=== PATIENT | male | born 1955 | race Two or more races ===

== ENCOUNTER 2022-01-12 14:55 | Inpatient (IN) | payer MEDICARE, MEDICAID ==
[~2022-01-12] VITALS: Ht 170.2 cm; Wt 97.4 kg
[2022-01-12] MEDS ORDERED: CLINDAMYCIN 600MG IV 50 ML IV ONE (15:30)
[2022-01-12 16:36] LABS: Basophils # (auto) 0.1 10 ^3/uL (0-0.2); Basophils % (auto) 0.5 % (0.0-2.0); Eosinophils # (auto) 0.3 10 ^3/uL (0-0.8); Hemoglobin 13.5 g/dL (13.5-17.5); Lymphocytes # (auto) 1.4 10 ^3/uL (0.4-5.4); Lymphocytes % (auto) 14.7 % (10.0-50.0); Mean Corpuscular Hemoglobin 30.2 pg (28.0-32.0); Mean Corpuscular Hgb Conc. 32.9 g/dL (32.0-36.0); Mean Corpuscular Volume 91.7 fL (80.0-100.0); Monocytes # (auto) 1.2 10 ^3/uL (0-1.3); Monocytes % (auto) 12.4 % (0.0-12.0); Neutrophils # (auto) 6.7 10 ^3/uL (1.6-8.6); Neutrophils % (auto) 69.4 % (37.0-80.0); Nucleated Red Blood Cells % 0.1 %; Red Blood Cells 4.47 10^6/uL (4.5-5.90); Red Cell Distribution Width 13.7 % (11.8-14.3); White Blood Cell 9.7 10^3/uL (4.4-10.8)
[2022-01-12 16:50] LABS: Calcium 8.9 mg/dL (8.5-10.1)
[2022-01-12 16:58] LABS: INR 1.05 (0.9-1.15); Partial Thromboplastin Time 28.8 sec (23.6-33.0)
[2022-01-12 17:01] LABS: Albumin 3.2 g/dL (3.4-5.0); BUN/Creatinine Ratio 15.8; Bilirubin, Total 0.9 mg/dL (0.2-1.0); CRP High Sensitivity 17.5 mg/dL (< 0.3); Total Protein 7.8 g/dL (6.4-8.2)
[2022-01-12] MEDS ORDERED: MORPHINE SULFATE INJ 2 MG/ml SYRG IV PRN (21:00)
[2022-01-12] MEDS ORDERED: DEXTROSE (50%) 50ML SYRG IV PRN (21:00)
[2022-01-12] MEDS ORDERED: ONDANSETRON HCL 4 MG/2 ML VIAL IV PRN (21:00)
[2022-01-12] MEDS ORDERED: cefTRIAXone 1GM/50ML D5W 50 ML IV ONE (21:00)
[2022-01-12] MEDS: SODIUM CHLORIDE 0.9% 1,000 ML IV SCH (21:53)
[2022-01-12] MEDS: CLINDAMYCIN 600MG IV 50 ML IV SCH (22:39)
[2022-01-12] MEDS ORDERED: SEMA2INJ SC (23:56)
[2022-01-13] MEDS: ACCU-CHEK COMFORT CURVE STRIP VI SCH ×4 (00:42→18:53)
[2022-01-13] MEDS: InsuLIN REG 1unit/0.01ml Soln (100units/ml) SC SCH ×4 (00:43→18:54)
[2022-01-13 04:59] VITALS: BP 151/72
[2022-01-13] MEDS: CLINDAMYCIN 600MG IV 50 ML IV SCH ×3 (05:36→22:06)
[2022-01-13 06:28] LABS: Urine Bacteria NONE SEEN /hpf (None Seen); Urine Blood Negative /uL (Negative); Urine WBC 1 /hpf (0 - 3)
[2022-01-13 06:39] LABS: Basophils # (auto) 0.1 10 ^3/uL (0-0.2); Basophils % (auto) 0.9 % (0.0-2.0); Eosinophils # (auto) 0.4 10 ^3/uL (0-0.8); Eosinophils % (auto) 5.4 % (0.0-7.0); Hemoglobin 12.8 g/dL (13.5-17.5); Lymphocytes # (auto) 1.1 10 ^3/uL (0.4-5.4); Lymphocytes % (auto) 13.4 % (10.0-50.0); Mean Corpuscular Hemoglobin 31.7 pg (28.0-32.0); Mean Corpuscular Hgb Conc. 34.5 g/dL (32.0-36.0); Mean Corpuscular Volume 91.7 fL (80.0-100.0); Monocytes # (auto) 0.9 10 ^3/uL (0-1.3); Neutrophils # (auto) 5.4 10 ^3/uL (1.6-8.6); Neutrophils % (auto) 68.3 % (37.0-80.0); Nucleated Red Blood Cells % 0.1 %; Red Blood Cells 4.03 10^6/uL (4.5-5.90); Red Cell Distribution Width 13.8 % (11.8-14.3); White Blood Cell 7.9 10^3/uL (4.4-10.8)
[2022-01-13 06:46] LABS: Calcium 8.6 mg/dL (8.5-10.1); Potassium 4.3 mmol/L (3.5-5.1)
[2022-01-13 06:51] LABS: Albumin 2.7 g/dL (3.4-5.0); BUN/Creatinine Ratio 14.3; Bilirubin, Total 0.7 mg/dL (0.2-1.0); Total Protein 7.1 g/dL (6.4-8.2)
[2022-01-13 08:11] LABS: Cholesterol 91 mg/dL (< 200); HDL Cholesterol 36 mg/dL (40-59); LDL Cholesterol 46 mg/dL (< 100); Triglycerides 119 mg/dL (< 150)
[2022-01-13 09:00] VITALS: BP 130/79
[2022-01-13] MEDS ORDERED: ERGOCALCIFEROL 50,000 UNIT(1.25MG) CAP PO SCH (10:15)
[2022-01-13] MEDS: SODIUM CHLORIDE 0.9% 1,000 ML IV SCH (10:20)
[2022-01-13] MEDS: LISINOPRIL 5 MG TAB PO SCH (10:58)
[2022-01-13] MEDS: cefTRIAXone 1GM/50ML D5W 50 ML IV SCH (11:07)
[2022-01-13 13:00] VITALS: BP 141/66
[2022-01-13 17:00] VITALS: BP 130/58
[2022-01-13 22:00] VITALS: BP 151/81
[2022-01-13] MEDS: DAKINS QUARTER STR 0.125% (NaHypochlorite) 473 ML TOPICAL SOL TOP SCH (22:07)
[2022-01-14] MEDS: SODIUM CHLORIDE 0.9% 1,000 ML IV SCH ×2 (00:05→12:15)
[2022-01-14] MEDS: ACCU-CHEK COMFORT CURVE STRIP VI SCH ×4 (00:12→16:52)
[2022-01-14] MEDS: InsuLIN REG 1unit/0.01ml Soln (100units/ml) SC SCH ×4 (00:34→16:55)
[2022-01-14 05:00] VITALS: BP 153/85
[2022-01-14] MEDS: CLINDAMYCIN 600MG IV 50 ML IV SCH ×3 (06:08→21:03)
[2022-01-14 06:28] LABS: Basophils # (auto) 0.1 10 ^3/uL (0-0.2); Basophils % (auto) 0.9 % (0.0-2.0); Eosinophils # (auto) 0.4 10 ^3/uL (0-0.8); Eosinophils % (auto) 5.5 % (0.0-7.0); Hematocrit 37.9 % (41.0-53.0); Hemoglobin 12.7 g/dL (13.5-17.5); Lymphocytes # (auto) 1.3 10 ^3/uL (0.4-5.4); Mean Corpuscular Hemoglobin 30.8 pg (28.0-32.0); Mean Corpuscular Hgb Conc. 33.5 g/dL (32.0-36.0); Mean Corpuscular Volume 91.9 fL (80.0-100.0); Monocytes # (auto) 1.2 10 ^3/uL (0-1.3); Neutrophils # (auto) 3.8 10 ^3/uL (1.6-8.6); Red Blood Cells 4.12 10^6/uL (4.5-5.90); Red Cell Distribution Width 13.9 % (11.8-14.3); White Blood Cell 6.8 10^3/uL (4.4-10.8)
[2022-01-14 06:42] LABS: Lymphocytes % (auto) 20.6 % (10.0-50.0)
[2022-01-14 06:51] LABS: Potassium 3.9 mmol/L (3.5-5.1)
[2022-01-14 06:58] LABS: Albumin 2.6 g/dL (3.4-5.0); BUN/Creatinine Ratio 13.4; Bilirubin, Total 0.5 mg/dL (0.2-1.0); Calcium 8.4 mg/dL (8.5-10.1)
[2022-01-14 09:00] VITALS: BP 140/79
[2022-01-14] MEDS: LISINOPRIL 5 MG TAB PO SCH (09:06)
[2022-01-14] MEDS: cefTRIAXone 1GM/50ML D5W 50 ML IV SCH (09:06)
[2022-01-14] MEDS: DAKINS QUARTER STR 0.125% (NaHypochlorite) 473 ML TOPICAL SOL TOP SCH ×2 (09:13→21:03)
[2022-01-14 13:00] VITALS: BP 153/77
[2022-01-14 16:59] VITALS: BP 137/55
[2022-01-14 22:00] VITALS: BP 158/68
[2022-01-15] MEDS: InsuLIN REG 1unit/0.01ml Soln (100units/ml) SC SCH ×4 (00:26→18:38)
[2022-01-15] MEDS: ACCU-CHEK COMFORT CURVE STRIP VI SCH ×4 (00:27→18:27)
[2022-01-15] MEDS: SODIUM CHLORIDE 0.9% 1,000 ML IV SCH (02:38)
[2022-01-15 05:00] VITALS: BP 143/75
[2022-01-15] MEDS: CLINDAMYCIN 600MG IV 50 ML IV SCH ×2 (05:54→07:41)
[2022-01-15] MEDS ORDERED: ONDANSETRON HCL 4 MG/2 ML VIAL ONE (06:56)
[2022-01-15] MEDS ORDERED: fentaNYL CITRATE 100 MCG/2 ML VL ONE (06:56)
[2022-01-15] MEDS ORDERED: PROPOFOL 10 MG/ML 20 ML IV ONE (06:56)
[2022-01-15] MEDS ORDERED: SODIUM CHLORIDE LOCK 10 ML ONE (06:56)
[2022-01-15] MEDS ORDERED: KETAMINE HCL 10 ML ONE (06:56)
[2022-01-15] MEDS ORDERED: MIDAZOLAM HCL 2MG/2ML 2ml VIAL (1mg/ml) ONE (06:56)
[2022-01-15] MEDS ORDERED: SUCCINYLCHOLINE CHLORIDE 20 MG/ML 10ML VIAL IV ONE (06:59)
[2022-01-15] MEDS ORDERED: LIDOCAINE 1%HCL (LOCAL ANESTH) 10 ML MDV ONE (07:09)
[2022-01-15] MEDS ORDERED: BUPIVACAINE HCL 50 ML ONE (07:09)
[2022-01-15] MEDS ORDERED: HYDROmorphone HCL 2 MG/ML VL/or syr IV PRN ×2 (07:30)
[2022-01-15] MEDS ORDERED: ACCU-CHEK COMFORT CURVE STRIP VI ONE (07:30)
[2022-01-15] MEDS ORDERED: MORPHINE SULFATE 4 MG/ML SYR/VIAL IV PRN (07:30)
[2022-01-15] MEDS ORDERED: METOCLOPRAMIDE HCL 5MG/ml INJ 2ml VIAL IV PRN (07:30)
[2022-01-15 08:00] VITALS: BP 129/41
[2022-01-15 09:00] VITALS: BP 153/60
[2022-01-15] MEDS: DAKINS QUARTER STR 0.125% (NaHypochlorite) 473 ML TOPICAL SOL TOP SCH ×2 (10:00→21:24)
[2022-01-15] MEDS: LISINOPRIL 5 MG TAB PO SCH (10:17)
[2022-01-15] MEDS: cefTRIAXone 1GM/50ML D5W 50 ML IV SCH (10:28)
[2022-01-15] MEDS ORDERED: VANCOMYCIN PER PHARMACY 0 MG IV SCH (11:00)
[2022-01-15] MEDS ORDERED: VANCOMYCIN 1GM/250ML 250 ML IV ONE (11:45)
[2022-01-15 13:00] VITALS: BP 129/41
[2022-01-15 17:34] VITALS: BP 127/73
[2022-01-15] MEDS: VANCOMYCIN 1GM/250ML 250 ML IV SCH (21:26)
[2022-01-15 22:00] VITALS: BP 123/69
[2022-01-16] MEDS: InsuLIN REG 1unit/0.01ml Soln (100units/ml) SC SCH ×5 (00:44→23:35)
[2022-01-16 05:24] VITALS: BP 131/62
[2022-01-16 06:16] LABS: Basophils # (auto) 0.1 10 ^3/uL (0-0.2); Basophils % (auto) 0.9 % (0.0-2.0); Eosinophils # (auto) 0.4 10 ^3/uL (0-0.8); Eosinophils % (auto) 5.8 % (0.0-7.0); Hematocrit 37.1 % (41.0-53.0); Hemoglobin 12.6 g/dL (13.5-17.5); Lymphocytes # (auto) 1.2 10 ^3/uL (0.4-5.4); Lymphocytes % (auto) 17.3 % (10.0-50.0); Mean Corpuscular Hgb Conc. 33.9 g/dL (32.0-36.0); Mean Corpuscular Volume 91.6 fL (80.0-100.0); Monocytes # (auto) 1.1 10 ^3/uL (0-1.3); Monocytes % (auto) 15.5 % (0.0-12.0); Neutrophils # (auto) 4.3 10 ^3/uL (1.6-8.6); Neutrophils % (auto) 60.5 % (37.0-80.0); Red Blood Cells 4.05 10^6/uL (4.5-5.90); Red Cell Distribution Width 13.9 % (11.8-14.3)
[2022-01-16 06:25] LABS: Albumin 2.5 g/dL (3.4-5.0); Calcium 8.7 mg/dL (8.5-10.1); Potassium 4.1 mmol/L (3.5-5.1)
[2022-01-16] MEDS: ACCU-CHEK COMFORT CURVE STRIP VI SCH ×5 (06:28→23:33)
[2022-01-16 07:32] LABS: BUN/Creatinine Ratio 14.6; Bilirubin, Total 0.4 mg/dL (0.2-1.0); CRP High Sensitivity 4.6 mg/dL (< 0.3)
[2022-01-16 08:00] VITALS: BP 158/71
[2022-01-16] MEDS: DAKINS QUARTER STR 0.125% (NaHypochlorite) 473 ML TOPICAL SOL TOP SCH ×2 (10:00→21:24)
[2022-01-16] MEDS: VANCOMYCIN 1GM/250ML 250 ML IV SCH ×2 (10:30→19:12)
[2022-01-16] MEDS: LISINOPRIL 5 MG TAB PO SCH (10:30)
[2022-01-16 12:00] VITALS: BP 166/79
[2022-01-16 16:00] VITALS: BP 152/71
[2022-01-16] MEDS ORDERED: FUROSEMIDE 40 MG/4 ML VIAL IV SCH (18:00)
[2022-01-17] MEDS: VANCOMYCIN 1GM/250ML 250 ML IV SCH ×3 (03:45→23:31)
[2022-01-17 05:00] VITALS: BP 152/76
[2022-01-17] MEDS: ACCU-CHEK COMFORT CURVE STRIP VI SCH ×4 (05:41→23:30)
[2022-01-17] MEDS: InsuLIN REG 1unit/0.01ml Soln (100units/ml) SC SCH ×4 (05:43→23:45)
[2022-01-17 07:15] LABS: Potassium 4.1 mmol/L (3.5-5.1)
[2022-01-17 07:24] LABS: Albumin 2.7 g/dL (3.4-5.0); BUN/Creatinine Ratio 16.3; Calcium 8.5 mg/dL (8.5-10.1); Phosphorus 3.3 mg/dL (2.5-4.90)
[2022-01-17 08:00] VITALS: BP 155/76
[2022-01-17] MEDS ORDERED: LISINOPRIL 10 MG TAB PO SCH (10:00)
[2022-01-17] MEDS ORDERED: PANTOPRAZOLE 40 MG TAB PO SCH (10:00)
[2022-01-17] MEDS ORDERED: INSULIN LANTUS (GLARGINE) 1 /0.01ml (100units/ml) SC SCH (10:00)
[2022-01-17] MEDS ORDERED: ENOXAPARIN SOD 80 MG/0.8ML SYRINGE SC SCH (10:00)
[2022-01-17] MEDS: DAKINS QUARTER STR 0.125% (NaHypochlorite) 473 ML TOPICAL SOL TOP SCH ×2 (10:00→22:00)
[2022-01-17] MEDS: ENOXAPARIN SOD 40 MG/0.4 ML SYRINGE SC SCH (11:15)
[2022-01-17 12:00] VITALS: BP 163/82
[2022-01-17] MEDS: INSULIN LANTUS (GLARGINE) 1 /0.01ml (100units/ml) SC SCH (12:55)
[2022-01-17] MEDS: LISINOPRIL 10 MG TAB PO SCH (13:36)
[2022-01-17 16:00] VITALS: BP 157/75
[2022-01-17 22:00] VITALS: BP 158/52
[2022-01-18 05:00] VITALS: BP 141/72
[2022-01-18] MEDS: ACCU-CHEK COMFORT CURVE STRIP VI SCH ×4 (06:28→23:59)
[2022-01-18] MEDS: InsuLIN REG 1unit/0.01ml Soln (100units/ml) SC SCH ×3 (06:30→18:29)
[2022-01-18 06:56] LABS: Basophils # (auto) 0.1 10 ^3/uL (0-0.2); Eosinophils # (auto) 0.3 10 ^3/uL (0-0.8); Eosinophils % (auto) 4.8 % (0.0-7.0); Hematocrit 40.4 % (41.0-53.0); Hemoglobin 13.3 g/dL (13.5-17.5); Lymphocytes # (auto) 1.3 10 ^3/uL (0.4-5.4); Mean Corpuscular Hemoglobin 30.2 pg (28.0-32.0); Mean Corpuscular Hgb Conc. 32.9 g/dL (32.0-36.0); Mean Corpuscular Volume 91.9 fL (80.0-100.0); Monocytes % (auto) 14.7 % (0.0-12.0); Neutrophils # (auto) 4.2 10 ^3/uL (1.6-8.6); Neutrophils % (auto) 60.5 % (37.0-80.0); Nucleated Red Blood Cells % 0.1 %; Red Blood Cells 4.39 10^6/uL (4.5-5.90); Red Cell Distribution Width 13.7 % (11.8-14.3); White Blood Cell 6.9 10^3/uL (4.4-10.8)
[2022-01-18 08:00] VITALS: BP 140/71
[2022-01-18] MEDS ORDERED: VANCOMYCIN 1GM/250ML 250 ML IV SCH (10:15)
[2022-01-18] MEDS: LISINOPRIL 10 MG TAB PO SCH (10:27)
[2022-01-18] MEDS: ENOXAPARIN SOD 40 MG/0.4 ML SYRINGE SC SCH (10:28)
[2022-01-18] MEDS: VANCOMYCIN 1GM/250ML 250 ML IV SCH ×2 (10:28→22:30)
[2022-01-18 12:00] VITALS: BP 162/82
[2022-01-18] MEDS ORDERED: hydrALAZINE HCL 20 MG/ML VL IV PRN (12:45)
[2022-01-18] MEDS: INSULIN LANTUS (GLARGINE) 1 /0.01ml (100units/ml) SC SCH (12:51)
[2022-01-18] MEDS: DAKINS QUARTER STR 0.125% (NaHypochlorite) 473 ML TOPICAL SOL TOP SCH ×2 (12:52→22:30)
[2022-01-18 16:00] VITALS: BP 134/63
[2022-01-18 22:00] VITALS: BP 155/69
[2022-01-19] MEDS: InsuLIN REG 1unit/0.01ml Soln (100units/ml) SC SCH ×3 (00:07→12:46)
[2022-01-19 05:00] VITALS: BP 157/76
[2022-01-19] MEDS: ACCU-CHEK COMFORT CURVE STRIP VI SCH ×2 (06:17→12:45)
[2022-01-19] MEDS: VANCOMYCIN 1GM/250ML 250 ML IV SCH (08:08)
[2022-01-19 08:46] VITALS: BP 153/79
[2022-01-19] MEDS: DAKINS QUARTER STR 0.125% (NaHypochlorite) 473 ML TOPICAL SOL TOP SCH (10:08)
[2022-01-19] MEDS: ENOXAPARIN SOD 40 MG/0.4 ML SYRINGE SC SCH (10:18)
[2022-01-19] MEDS: LISINOPRIL 10 MG TAB PO SCH (10:18)
[2022-01-19 12:02] VITALS: BP 110/71
[2022-01-19] MEDS: INSULIN LANTUS (GLARGINE) 1 /0.01ml (100units/ml) SC SCH (12:47)
[2022-01-19] MEDS ORDERED: ERGO1CAP23 PO (14:07)
[2022-01-19 16:31] VITALS: BP 122/73
== END 2022-01-19 18:19 | disposition home health service (06) | DRG 629 ==
LOC: ER 14:55 → OVERFLOW 20:48 → EAST 23:54
PROVIDERS: ADMIT Nurse Practitioner; ATTEND Internal Medicine
PROC: 05HF33Z Insertion of Infusion Device into Left Cephalic Vein, Percutaneous Approach (ICD-10-PCS; 2022-01-14)
PROC: B54NZZA Ultrasonography of Left Upper Extremity Veins, Guidance (ICD-10-PCS; 2022-01-14)
PROC: 0QBP0ZX Excision of Left Metatarsal, Open Approach, Diagnostic (ICD-10-PCS; 2022-01-15)
PROC: 0QBP0ZX Excision of Left Metatarsal, Open Approach, Diagnostic (ICD-10-PCS; principal; 2022-01-15 07:43)
DX: E11.69 Type 2 diabetes mellitus with other specified complication (principal); E44.0 Moderate protein-calorie malnutrition; L03.116 Cellulitis of left lower limb; M86.8X7 Other osteomyelitis, ankle and foot; L02.612 Cutaneous abscess of left foot; M00.9 Pyogenic arthritis, unspecified; L97.529 Non-pressure chronic ulcer of other part of left foot with unspecified severity; I10 Essential (primary) hypertension; E66.9 Obesity, unspecified; E55.9 Vitamin D deficiency, unspecified; M19.079 Primary osteoarthritis, unspecified ankle and foot; E66.01 Morbid (severe) obesity due to excess calories; Z20.822 Contact with and (suspected) exposure to COVID-19; Z68.33 Body mass index [BMI] 33.0-33.9, adult; Z83.3 Family history of diabetes mellitus; Z79.84 Long term (current) use of oral hypoglycemic drugs
CPT/HCPCS: 36415; 71045; 73630; 73700; 73718; 80053; 80061; 80069; 80202; 81001; 82306; 82565; 82962; 83036; 84443; 85025; 85610; 85652; 85730; 86141; 87040; 87070; 87075; 87077; 87186; 87205; 93005; 93925; 96365; 96367; 97116; 97163; 97530; G0378; J0330; J0696; J1815; J2001; J2250; J2405; J2704; J3490

== ENCOUNTER 2023-07-21 14:50 | Inpatient (IN) | payer MEDICARE, MEDICAID ==
[~2023-07-21] VITALS: Ht 167.6 cm; Wt 95.0 kg
[~2023-07-21 14:50] MED LIST: ERGO1CAP23 PO; SEMA2INJ SC
[2023-07-21] MEDS ORDERED: cloNIDine HCL 0.1 MG TAB PO ONE (15:15)
[2023-07-21 15:20] VITALS: PULSE 80; RESP 16; O2SAT 98
[2023-07-21 16:03] LABS: Alanine Aminotransferase 35 U/L (7-40); Albumin 4.8 g/dL (3.2-4.8); Alkaline Phosphatase 58 U/L (46-116); Anion Gap 5 (5-15); Aspartate Aminotransferase 21 U/L (13-40); BUN/Creatinine Ratio 13.4 (10.0-20.0); Blood Urea Nitrogen 11 mg/dL (9-23); Calcium 9.8 mg/dL (8.5-10.1); Carbon Dioxide 30 mmol/L (20-30); Chloride 100 mmol/L (98-107); Glucose 153 mg/dL (74-106); Sodium 135 mmol/L (136-145)
[2023-07-21 16:04] LABS: Total Protein 7.7 g/dL (5.7-8.2)
[2023-07-21 16:08] LABS: Basophils # (auto) 0 10 ^3/uL (0-0.2)
[2023-07-21 16:29] LABS: Basophils % (auto) 0.7 % (0.0-2.0); Eosinophils # (auto) 0.1 10 ^3/uL (0-0.8); Hematocrit 44.4 % (41.0-53.0); Hemoglobin 15.2 g/dL (13.5-17.5); Lymphocytes # (auto) 1.7 10 ^3/uL (0.4-5.4); Lymphocytes % (auto) 23.8 % (10.0-50.0); Mean Corpuscular Hemoglobin 31.8 pg (28.0-32.0); Mean Corpuscular Hgb Conc. 34.2 g/dL (32.0-36.0); Monocytes # (auto) 0.7 10 ^3/uL (0-1.3); Monocytes % (auto) 10.1 % (0.0-12.0); Neutrophils # (auto) 4.4 10 ^3/uL (1.6-8.6); Neutrophils % (auto) 63.4 % (37.0-80.0); Red Blood Cells 4.78 10^6/uL (4.5-5.90); White Blood Cell 6.9 10^3/uL (4.4-10.8)
[2023-07-21] MEDS ORDERED: ACETAMINOPHEN 325 MG TAB PO PRN (17:00)
[2023-07-21] MEDS ORDERED: DEXTROSE (50%) 50ML SYRG IV PRN (17:00)
[2023-07-21] MEDS ORDERED: NITROGLYCERIN 0.4 MG SL TAB SL PRN (17:00)
[2023-07-21] MEDS ORDERED: MORPHINE SULFATE INJ 2 MG/ml SYRG IV PRN (17:00)
[2023-07-21 17:05] LABS: Urine Bacteria NONE SEEN /hpf (None Seen); Urine Blood Negative /uL (Negative); Urine Clarity Clear (Clear); Urine Color Colorless (Yellow); Urine Protein, UAD Negative (Negative); Urine Specific Gravity 1.011 (1.001-1.035); Urine Urobilinogen Normal (Negative); Urine WBC <1 /hpf (0 - 3); Urine pH 7.5 (5.0-8.0)
[2023-07-21] MEDS ORDERED: ERGOCALCIFEROL 50,000 UNIT(1.25MG) CAP PO SCH (17:30)
[2023-07-21 17:32] LABS: INR 0.99 (0.9-1.15); Partial Thromboplastin Time 27.8 SEC (24.5-34.5); Prothrombin Time 10.4 sec (9.3-11.8)
[2023-07-21 17:43] LABS: Triglycerides 175 mg/dL (< 150)
[2023-07-21 17:44] LABS: LDL Cholesterol 110 mg/dL (< 100)
[2023-07-21 17:45] LABS: Cholesterol 166 mg/dL (< 200); HDL Cholesterol 45 mg/dL (40-59)
[2023-07-21] MEDS: InsuLIN REG 1unit/0.01ml Soln (100units/ml) SC SCH ×2 (19:18→21:36)
[2023-07-21] MEDS: ACCU-CHEK COMFORT CURVE STRIP VI SCH ×2 (19:18→21:36)
[2023-07-21] MEDS: SODIUM CHLORIDE 0.9% 1,000 ML IV SCH (19:22)
[2023-07-21 20:43] VITALS: PULSE 72; RESP 16; O2SAT 96
[2023-07-21 22:45] VITALS: BP 109/57; PULSE 72; RESP 16; TEMP 98.3; O2SAT 98
[2023-07-21 23:07] VITALS: PULSE 72
[2023-07-22] VITALS (9 sets, daily range): BP systolic 126–164; BP diastolic 68–84; PULSE 62–82; RESP 16–22; TEMP 98.3–98.7; O2SAT 97–98
[2023-07-22] MEDS ORDERED: INSU1INJ19 SC (00:03)
[2023-07-22] MEDS ORDERED: LISI2.5T47 PO (00:03)
[2023-07-22] MEDS: InsuLIN REG 1unit/0.01ml Soln (100units/ml) SC SCH ×4 (06:25→21:40)
[2023-07-22] MEDS: ACCU-CHEK COMFORT CURVE STRIP VI SCH ×4 (06:25→21:34)
[2023-07-22 06:29] LABS: Basophils # (auto) 0 10 ^3/uL (0-0.2); Basophils % (auto) 0.8 % (0.0-2.0); Eosinophils # (auto) 0.1 10 ^3/uL (0-0.8); Eosinophils % (auto) 1.9 % (0.0-7.0); Hematocrit 41.2 % (41.0-53.0); Hemoglobin 13.9 g/dL (13.5-17.5); Lymphocytes # (auto) 1.4 10 ^3/uL (0.4-5.4); Lymphocytes % (auto) 22.8 % (10.0-50.0); Mean Corpuscular Hemoglobin 31.3 pg (28.0-32.0); Mean Corpuscular Hgb Conc. 33.7 g/dL (32.0-36.0); Mean Corpuscular Volume 92.8 fL (80.0-100.0); Monocytes # (auto) 0.6 10 ^3/uL (0-1.3); Monocytes % (auto) 10.2 % (0.0-12.0); Neutrophils # (auto) 3.9 10 ^3/uL (1.6-8.6); Neutrophils % (auto) 64.3 % (37.0-80.0); Nucleated Red Blood Cells % 0.1 %; Red Blood Cells 4.45 10^6/uL (4.5-5.90); Red Cell Distribution Width 13.9 % (11.8-14.3); White Blood Cell 6.1 10^3/uL (4.4-10.8)
[2023-07-22 06:43] LABS: Alanine Aminotransferase 23 U/L (7-40); Albumin 3.9 g/dL (3.2-4.8); Alkaline Phosphatase 46 U/L (46-116); Anion Gap 6 (5-15); Aspartate Aminotransferase 17 U/L (13-40); BUN/Creatinine Ratio 12.1 (10.0-20.0); Blood Urea Nitrogen 8 mg/dL (9-23); Calcium 9.1 mg/dL (8.5-10.1); Carbon Dioxide 27 mmol/L (20-30); Chloride 104 mmol/L (98-107); Glucose 131 mg/dL (74-106); Potassium 3.7 mmol/L (3.5-5.1); Sodium 137 mmol/L (136-145)
[2023-07-22 06:44] LABS: Bilirubin, Total 1.3 mg/dL (0.2-1.0); Total Protein 6.2 g/dL (5.7-8.2)
[2023-07-22] MEDS: SODIUM CHLORIDE 0.9% 1,000 ML IV SCH (08:54)
[2023-07-22] MEDS ORDERED: CLOPIDOGREL BISULFATE 75 MG TAB PO SCH (10:00)
[2023-07-22] MEDS ORDERED: LORazepam 2MG/ML-1ML VIAL IV ONE (10:15)
[2023-07-22] MEDS ORDERED: IOHEXOL 350 MG/ML 100ML IJ ONE (11:15)
[2023-07-22] MEDS: LISINOPRIL 5 MG TAB PO SCH (12:12)
[2023-07-22] MEDS ORDERED: ERGOCALCIFEROL 50,000 UNIT(1.25MG) CAP PO SCH (14:15)
[2023-07-22] MEDS ORDERED: LORazepam 2MG/ML-1ML VIAL IV PRN (14:15)
[2023-07-22] MEDS: CYANOCOBALAMIN 500 MCG TAB PO SCH (18:22)
[2023-07-22] MEDS: ATORVASTATIN 20 MG TAB PO SCH (21:33)
[2023-07-22] MEDS: QUEtiapine FUMARATE 25 MG TAB PO SCH (21:33)
[2023-07-23] VITALS (8 sets, daily range): BP systolic 127–171; BP diastolic 74–93; PULSE 55–94; RESP 16–18; TEMP 97.9–99.3; O2SAT 95–98
[2023-07-23] MEDS: ACCU-CHEK COMFORT CURVE STRIP VI SCH ×4 (06:13→21:47)
[2023-07-23] MEDS: InsuLIN REG 1unit/0.01ml Soln (100units/ml) SC SCH ×4 (06:14→21:48)
[2023-07-23 06:52] LABS: Basophils # (auto) 0.1 10 ^3/uL (0-0.2); Basophils % (auto) 0.9 % (0.0-2.0); Eosinophils # (auto) 0.2 10 ^3/uL (0-0.8); Eosinophils % (auto) 3.1 % (0.0-7.0); Hematocrit 42.7 % (41.0-53.0); Hemoglobin 14.3 g/dL (13.5-17.5); Lymphocytes # (auto) 1.7 10 ^3/uL (0.4-5.4); Lymphocytes % (auto) 26.6 % (10.0-50.0); Mean Corpuscular Hemoglobin 31.2 pg (28.0-32.0); Mean Corpuscular Hgb Conc. 33.5 g/dL (32.0-36.0); Mean Corpuscular Volume 93.4 fL (80.0-100.0); Monocytes # (auto) 0.8 10 ^3/uL (0-1.3); Monocytes % (auto) 12.4 % (0.0-12.0); Neutrophils # (auto) 3.5 10 ^3/uL (1.6-8.6); Nucleated Red Blood Cells % 0.2 %; Red Blood Cells 4.57 10^6/uL (4.5-5.90); Red Cell Distribution Width 13.9 % (11.8-14.3); White Blood Cell 6.2 10^3/uL (4.4-10.8)
[2023-07-23 07:17] LABS: Alanine Aminotransferase 23 U/L (7-40); Albumin 3.9 g/dL (3.2-4.8); Alkaline Phosphatase 48 U/L (46-116); Anion Gap 6 (5-15); Aspartate Aminotransferase 24 U/L (13-40); Bilirubin, Total 1.3 mg/dL (0.2-1.0); Blood Urea Nitrogen 9 mg/dL (9-23); Calcium 9.3 mg/dL (8.5-10.1); Carbon Dioxide 28 mmol/L (20-30); Chloride 103 mmol/L (98-107); Glucose 143 mg/dL (74-106); Potassium 3.8 mmol/L (3.5-5.1); Sodium 137 mmol/L (136-145); Total Protein 6.2 g/dL (5.7-8.2)
[2023-07-23 07:40] LABS: BUN/Creatinine Ratio 10.2 (10.0-20.0)
[2023-07-23] MEDS: ASPirin 81 mg TAB PO SCH (10:06)
[2023-07-23] MEDS: CLOPIDOGREL BISULFATE 75 MG TAB PO SCH (10:07)
[2023-07-23] MEDS: CYANOCOBALAMIN 500 MCG TAB PO SCH (10:07)
[2023-07-23] MEDS: LISINOPRIL 5 MG TAB PO SCH (10:07)
[2023-07-23] MEDS: hydrALAZINE HCL 20 MG/ML VL IV PRN (13:27)
[2023-07-23] MEDS: QUEtiapine FUMARATE 25 MG TAB PO SCH (21:47)
[2023-07-23] MEDS: ATORVASTATIN 20 MG TAB PO SCH (21:47)
[2023-07-24] VITALS (9 sets, daily range): BP systolic 132–166; BP diastolic 65–91; PULSE 55–83; RESP 16–20; TEMP 97.5–98; O2SAT 91–98
[2023-07-24] MEDS: ACCU-CHEK COMFORT CURVE STRIP VI SCH ×4 (06:34→21:42)
[2023-07-24] MEDS: InsuLIN REG 1unit/0.01ml Soln (100units/ml) SC SCH ×4 (06:35→21:43)
[2023-07-24] MEDS: CYANOCOBALAMIN 500 MCG TAB PO SCH (09:48)
[2023-07-24] MEDS: CLOPIDOGREL BISULFATE 75 MG TAB PO SCH (09:48)
[2023-07-24] MEDS: ASPirin 81 mg TAB PO SCH (09:48)
[2023-07-24] MEDS: LISINOPRIL 5 MG TAB PO SCH (09:54)
[2023-07-24] MEDS: ATORVASTATIN 20 MG TAB PO SCH (21:42)
[2023-07-24] MEDS: QUEtiapine FUMARATE 25 MG TAB PO SCH (21:42)
[2023-07-25] VITALS (10 sets, daily range): BP systolic 138–162; BP diastolic 74–79; PULSE 59–86; RESP 15–19; TEMP 97.7–98.2; O2SAT 93–98
[2023-07-25 06:10] LABS: Basophils # (auto) 0.1 10 ^3/uL (0-0.2); Basophils % (auto) 0.7 % (0.0-2.0); Eosinophils # (auto) 0.3 10 ^3/uL (0-0.8); Eosinophils % (auto) 3.3 % (0.0-7.0); Hematocrit 42.5 % (41.0-53.0); Hemoglobin 14.3 g/dL (13.5-17.5); Lymphocytes # (auto) 1.4 10 ^3/uL (0.4-5.4); Lymphocytes % (auto) 17.9 % (10.0-50.0); Mean Corpuscular Hemoglobin 31.2 pg (28.0-32.0); Mean Corpuscular Hgb Conc. 33.6 g/dL (32.0-36.0); Mean Corpuscular Volume 92.8 fL (80.0-100.0); Neutrophils # (auto) 5.1 10 ^3/uL (1.6-8.6); Neutrophils % (auto) 65.1 % (37.0-80.0); Nucleated Red Blood Cells % 0.1 %; Red Blood Cells 4.58 10^6/uL (4.5-5.90); Red Cell Distribution Width 13.7 % (11.8-14.3); White Blood Cell 7.9 10^3/uL (4.4-10.8)
[2023-07-25 06:17] LABS: Alanine Aminotransferase 24 U/L (7-40); Albumin 3.8 g/dL (3.2-4.8); Alkaline Phosphatase 48 U/L (46-116); Anion Gap 5 (5-15); Aspartate Aminotransferase 21 U/L (13-40); BUN/Creatinine Ratio 12.4 (10.0-20.0); Blood Urea Nitrogen 12 mg/dL (9-23); Calcium 9.1 mg/dL (8.5-10.1); Carbon Dioxide 30 mmol/L (20-30); Chloride 102 mmol/L (98-107); Glucose 207 mg/dL (74-106); Potassium 3.9 mmol/L (3.5-5.1); Sodium 137 mmol/L (136-145)
[2023-07-25 06:18] LABS: Bilirubin, Total 1.3 mg/dL (0.2-1.0); Total Protein 6.1 g/dL (5.7-8.2)
[2023-07-25] MEDS: ACCU-CHEK COMFORT CURVE STRIP VI SCH ×3 (06:21→17:00)
[2023-07-25] MEDS: InsuLIN REG 1unit/0.01ml Soln (100units/ml) SC SCH ×3 (06:22→17:00)
[2023-07-25 09:29] LABS: Hepatitis B Surface Antigen Negative (Negative)
[2023-07-25 09:51] LABS: Hepatitis C Antibody Negative (Negative)
[2023-07-25] MEDS: CLOPIDOGREL BISULFATE 75 MG TAB PO SCH (10:41)
[2023-07-25] MEDS: LISINOPRIL 5 MG TAB PO SCH (10:41)
[2023-07-25] MEDS: CYANOCOBALAMIN 500 MCG TAB PO SCH (10:42)
[2023-07-25] MEDS: ASPirin 81 mg TAB PO SCH (10:42)
[2023-07-25] MEDS ORDERED: LISI-275 PO (11:39)
[2023-07-25] MEDS ORDERED: CYAN500T3 PO (11:39)
[2023-07-25] MEDS ORDERED: ATOR20TA50 PO (11:39)
[2023-07-25] MEDS ORDERED: ASPI-325 PO (11:39)
[2023-07-25] MEDS ORDERED: CLOP75TA70 PO (11:39)
[2023-07-25] MEDS ORDERED: METF-372 PO (11:41)
[2023-07-25] MEDS ORDERED: INSLANTI SC (11:41)
[2023-07-25] MEDS: hydrALAZINE HCL 20 MG/ML VL IV PRN (12:19)
[2023-07-26] MEDS ORDERED: INSULIN LANTUS (GLARGINE) 1 /0.01ml (100units/ml) SC SCH (07:00)
[2023-07-26] MEDS ORDERED: EMPAGLIFLOZIN 10 MG TAB PO SCH (07:00)
== END 2023-07-25 18:50 | DRG 65 ==
LOC: ER 14:50 → TELE-EAST 16:52 → TELE 16:52 → TELE-EAST 22:32
PROVIDERS: ADMIT Internal Medicine; ATTEND Internal Medicine
PROC: 5A09357 Assistance with Respiratory Ventilation, Less than 24 Consecutive Hours, Continuous Positive Airway Pressure (ICD-10-PCS; principal; 2023-07-24)
DX: I63.89 Other cerebral infarction (principal); G81.91 Hemiplegia, unspecified affecting right dominant side; I16.0 Hypertensive urgency; R47.01 Aphasia; R47.81 Slurred speech; E66.01 Morbid (severe) obesity due to excess calories; R29.810 Facial weakness; E11.65 Type 2 diabetes mellitus with hyperglycemia; G47.10 Hypersomnia, unspecified; E55.9 Vitamin D deficiency, unspecified; E53.8 Deficiency of other specified B group vitamins; F17.200 Nicotine dependence, unspecified, uncomplicated; Z83.3 Family history of diabetes mellitus; Z79.82 Long term (current) use of aspirin; Z79.02 Long term (current) use of antithrombotics/antiplatelets; Z79.899 Other long term (current) drug therapy; Z68.33 Body mass index [BMI] 33.0-33.9, adult
CPT/HCPCS: 36415; 70450; 70460; 70491; 70551; 80053; 80061; 81001; 82248; 82306; 82607; 82962; 83036; 84443; 84484; 85025; 85610; 85730; 86803; 87340; 92523; 92610; 93005; 93306; 93886; 93971; 94660; 97110; 97116; 97163; 97530; 99291; G0378; J1815

== ENCOUNTER → 2023-11-25 | Outpatient (CLI) | payer MEDICARE, MEDICAID ==
[~2023-11-25] MED LIST changes: +ASPI-325 PO; +ATOR20TA50 PO; +CLOP75TA70 PO; +CYAN500T3 PO; +INSLANTI SC; +LISI-275 PO; +METF-372 PO; -SEMA2INJ SC
[2023-11-25 08:58] LABS: Urine Bacteria None Seen /hpf (None Seen)
[2023-11-25 09:34] LABS: Urine Blood Negative /uL (Negative); Urine Clarity Clear (Clear); Urine Color Light-Yellow (Yellow); Urine Protein, UAD Negative (Negative); Urine Specific Gravity 1.039 (1.001-1.035); Urine Urobilinogen Normal (Negative); Urine WBC 1 /hpf (0 - 3); Urine pH 5.5 (5.0-9.0)
== END | disposition home or self-care (01) ==
LOC: LAB 08:46
PROVIDERS: ATTEND Internal Medicine
DX: Z12.11 Encounter for screening for malignant neoplasm of colon (principal); I11.9 Hypertensive heart disease without heart failure; E11.65 Type 2 diabetes mellitus with hyperglycemia; E11.9 Type 2 diabetes mellitus without complications; Z86.73 Personal history of transient ischemic attack (TIA), and cerebral infarction without residual deficits; Z79.899 Other long term (current) drug therapy
CPT/HCPCS: 36415; 81001; 82043; 82306; 82607; 83036; 84443